=== PATIENT | male | born 1980 ===

== ENCOUNTER → 2022-05-20 15:28 | Inpatient (IN) | payer MEDICAID, OTHER ==
[2022-05-09 18:13] LABS: Appearance,Urine Clear (Clear); Bilirubin,Urine Negative (Negative); Blood,Urine Negative (Negative); Color,Urine Colorless; Glucose,Urine (UA) Negative (Negative); Ketones,Urine Negative (Negative); Leukocyte Esterase,Urine Negative (Negative); Nitrite,Urine Negative (Negative); Protein,Urine Negative (Negative); Specific Gravity,Urine 1.004 (1.001-1.035); Urobilinogen,Urine <2.0 mg/dL (<2.0)
[2022-05-09] MEDS: DIVALPROEX ER 500 MG TAB.ER.24H PO SCH (20:01)
[2022-05-09] MEDS: QUEtiapine 100 MG TAB PO SCH (20:02)
[2022-05-09] MEDS: FAMOTIDINE 20 MG TAB PO SCH (20:02)
[2022-05-09] MEDS: LORazepam 1 MG/0.5 ML VIAL IM PRN (21:25)
[2022-05-10] MEDS: LORazepam 1 MG TAB PO PRN ×3 (02:23→21:08)
[2022-05-10] MEDS: NICOTINE 14MG/24HR PATCH TRANSDERM SCH (08:44)
[2022-05-10] MEDS: chlorproMAZINE 25 MG TAB PO PRN (10:09)
--- NOTE | 2022-05-10 12:00 | P.HP ---
Psychiatric H&P - . H&P Date: 05/10/22 History & Physical: Allergies Allergy/AdvReac Type Severity Reaction Status Date / Time No Known Allergies Allergy Verified 05/09/22 16:04 Vital Signs Temp 97.4 F L 05/09/22 14:09 Pulse 94 05/09/22 14:09 Resp 18 05/09/22 14:09 BP 136/78 05/09/22 14:09 Pulse Ox 94 L 05/09/22 14:09 FiO2 Intake & Output 05/09/22 05/10/22 05/10/22 18:59 06:59 18:59 Weight 90 kg Laboratory Last Values Urine Color Colorless 05/09/22 15:38 Urine Appearance Clear (Clear) 05/09/22 15:38 Urine pH 6.0 (5.0-8.0) 05/09/22 15:38 Ur Specific [place] 1.004 (1.001-1.035) 05/09/22 15:38 Urine Protein Negative (Negative) 05/09/22 15:38 Urine Glucose (UA) Negative (Negative) 05/09/22 15:38 Urine Ketones Negative (Negative) 05/09/22 15:38 Urine Blood Negative (Negative) 05/09/22 15:38 Urine Nitrite Negative (Negative) 05/09/22 15:38 Urine Bilirubin Negative (Negative) 05/09/22 15:38 Urine Urobilinogen <2.0 mg/dL (<2.0) 05/09/22 15:38 Ur Leukocyte Esterase Negative (Negative) 05/09/22 15:38 05/10/22 12:00 IDENTIFYING DATA: Patient is a 41-year-old -Bulgarian male with significant history of schizoaffective disorder bipolar type who presented from [facility] under petition and certification for psychotic and manic behavior. HPI: Patient presented to the hospital on 05/09/2022, brought into the hospital from [facility] under petition and certification for acute psychotic and manic behavior. As per chart review from [place], the patient was brought to the hospital by EMS and police officers due to delusional behavior and psychosis. He was noted to be delusional upon arrival. He attempted to grab his mother's arms and was screaming incoherently at police officers. [place] He was threatening to call his ip technology transactions attorney and was screaming nonsensical things. The patient was subsequently admitted to our psychiatric unit. Upon evaluation her psychiatric unit, the patient is minimally cooperative. He reports that he does not want to speak with this provider or engage in any medication management until he receives coffee. He was informed that to be only serve coffee during mealtime however the patient maintains this stance. 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 Police can't stand that a black man owns all the properties." The patient is quite agitated and nonsensical in his speech. No other history could be elicited at this time. PAST PSYCHIATRIC HISTORY: Patient has reported history of schizoaffective disorder and bipolar disorder. Previous medications prior to this admission included Seroquel and Depakote. PMH: Unable to assess. As per chart review, no previous medical problems or concerns. ALLERGIES: No known drug ALLERGIES CHEMICAL DEPENDENCY HISTORY: Patient reportedly occasional alcohol and marijuana use. Tobacco use as per chart review. FAMILY PSYCHIATRIC/SUBSTANCE USE HISTORY: Unable to assess. SOCIAL HISTORY: Patient reportedly lives in [facility] his mother. He has a daughter. Unable to determine any further history at this time. MENTAL STATUS EXAM: General Appearance: Patient appears to be stated age is alert, however not directable or cooperative. Patient appears to have fair hygiene and grooming. Behavior: Patient displays psychomotor agitation. Speech: Patient's speech is pressured, spontaneous, loud in volume. Mood/Affect: Patient reports their mood is angry, affect is congruent and agitated and expansive Suicidality/Homicidality: Patient denies having any homicidal ideation intent or plan. Denies any suicidal ideations intent or plan Perceptions: Patient denies any visual hallucinations and denies any auditory hallucinations Though content/process: Patient endorses numerous grandiose delusions. Thought process with flight of ideas. Memory and concentration: AOX3, grossly intact for the purposes of this session. Concentration is grossly poor. Judgment and insight: Grossly poor. STRENGTHS/WEAKNESSES: Strength is that the patient appears to be adherent with his medications with his Depakote level being 87. Weakness is that the patient has poor insight. INTELLECT: average IMPRESSIONS: Schizoaffective disorder, bipolar type versus bipolar 1 disorder, manic episode PLAN: -Patient is admitted under involuntary status to MHU for stabilization of psychiatric symptoms and safety. A second certification was completed and along with petition will be filed for court. -Medications : Will start patient on Risperdal 2 mg by mouth twice a day for mood stabilization/psychosis Continue Seroquel 300 mg by mouth at bedtime for now. Likely taper off this medication as her transition the patient to Risperdal perseris or invega sustenna Depakote ER 1500 mg by mouth at bedtime for mood stabilization -Ativan and Thorazine PRN for agitation/aggression -Patient was informed of the risks, benefits and side effects of the medication however states that he will refuse medications. -Internal Medicine consult to perform medical evaluation and physical. -NRT - nicotine patch -SW on board for discharge planning. Encourage patient to participate in groups to work on coping skills. 05/10/22 12:00
[2022-05-10] MEDS: LORazepam 1 MG/0.5 ML VIAL IM PRN (15:47)
--- NOTE | 2022-05-10 19:03 | P.HPIM ---
History of Present Illness H&P Date: 05/10/22 History of Presenting Illness: Patient is a very pleasant 41-year-old male with a past medical history of nicotine dependence, schizoaffective disorder, bipolar disorder, and cannabis use. He is currently admitted to the inpatient mental health unit for stabilization of psychiatric symptoms resulting from manic episode. We have been consulted for medical management for outpatient hospitalization. Patient very agitated and exhibiting manic behaviors throughout examination. Physical exam and review of systems is limited secondary to patient's yelling, outbursts, and angry affect. Patient did per minute physical exam of listening to her heart and lungs and then became irate and yelling and nursing staff intervening at this time. Review of systems: Pertinent positives and negatives as discussed in HPI, a complete review of systems was performed and all other systems are negative. Physical exam: Vital signs reviewed and stable. General: Nontoxic, no distress and appears stated age. Derm: Skin warm and dry, normal coloration for ethnicity. Head: Atraumatic, normocephalic and symmetric. Eyes: EOMs intact, no lid lag, and anicteric sclera Cardiovascular: regular rate and rhythm with normal S1S2, no murmur, Lungs: Respirations even, regular, and unlabored on room air. Lungs CTA bilaterally, no rhonchi, no rales, no wheezing, and no accessory muscle usage. Abdominal: soft, nontender to palpation, no guarding, no appreciable organomegaly Ext: ROM intact. Ambulatory with a steady gait. No lower extremity swelling. Neuro: Rapid speech Psych: Alert and oriented, aggressive behaviors and angry affect Assessment and Plan of Care: Polysubstance use -Recommend smoking cessation as well as cessation of all cannabinoid use and alcohol use. Manic episode Schizoaffective disorder Bipolar disorder -Management per primary admitting psychiatric team. -Maintain safe and supportive care. Festus Garcia NP rendered care for this patient independently, reviewed the findings and plan as documented in the note above. I did not physically speak with or examine the patient on this date. Thank you for allowing us to participate in the care of this pleasant patient. Do not hesitate to contact us with questions. Someone can be reached from the [facility] hospitalist group all hours of the day at [phone] or via [employer]. Past Medical History Past Medical History: No Reported History History of Any Multi-Drug Resistant Organisms: None Reported Past Surgical History: No Surgical Hx Reported Past Anesthesia/Blood Transfusion Reactions: No Reported Reaction Past Psychological History: Bipolar Smoking Status: Current some day smoker Past Drug Use History: None Reported Medications and Allergies Allergies Allergy/AdvReac Type Severity Reaction Status Date / Time No Known Allergies Allergy Verified 05/09/22 16:04 Physical Exam Osteopathic Statement: *. No significant issues noted on an osteopathic s tructural exam other than those noted in the History and Physical/Consult.
[2022-05-10] MEDS: FAMOTIDINE 20 MG TAB PO SCH (19:53)
[2022-05-10] MEDS: DIVALPROEX ER 500 MG TAB.ER.24H PO SCH (19:53)
[2022-05-10] MEDS: risperiDONE 2 MG TAB PO SCH (19:53)
[2022-05-10] MEDS: QUEtiapine 100 MG TAB PO SCH (19:53)
[2022-05-11] MEDS: risperiDONE 2 MG TAB PO SCH (09:05)
[2022-05-11] MEDS: NICOTINE 14MG/24HR PATCH TRANSDERM SCH (09:05)
[2022-05-11] MEDS: chlorproMAZINE 25 MG TAB PO PRN (12:11)
[2022-05-11] MEDS: LORazepam 1 MG TAB PO PRN (12:11)
[2022-05-11] MEDS: DIVALPROEX ER 500 MG TAB.ER.24H PO SCH (19:53)
[2022-05-11] MEDS: QUEtiapine 100 MG TAB PO SCH (19:54)
[2022-05-11] MEDS: FAMOTIDINE 20 MG TAB PO SCH (19:54)
--- NOTE | 2022-05-11 20:18 | P.PN ---
Progress Note - Text Progress Note Date: 05/11/22 Interval History: Patient was seen wandering the hallways and was repeatedly approaching this provider with flight of ideas. He is disorganized as he describes that there is a medication change would like made. Discussed increasing Risperdal and Seroquel to help him with sleep. He was initially agreeable with this but approached this provider again with the same concern. After it was clarified that the changes previously discussed were made, patient then began speaking about his outpatient provider. This time, patient continues to be disorganized. At this time patient denies any suicidal or homical ideations, intent or plan. Patient denies any auditory, visual hallucinations and denies any paranoia or delusions. Patient denies any side effects from the medications and has been compliant with meds. Mental Status Exam: General Appearance: Patient appears to be stated age is alert, however not directable or cooperative. Patient appears to have fair hygiene and grooming. Behavior: Patient displays psychomotor agitation. Intense eye contact Speech: Patient's speech is pressured, spontaneous, loud in volume. Mood/Affect: Patient reports their mood is angry, affect is congruent and agitated and expansive Suicidality/Homicidality: Patient denies having any homicidal ideation intent or plan. Denies any suicidal ideations intent or plan Perceptions: Patient denies any visual hallucinations and denies any auditory hallucinations Though content/process: Thought process with flight of ideas. Denies SI and HI Memory and concentration: AOX3, grossly intact for the purposes of this session. Concentration is grossly poor. Judgment and insight: Grossly poor. Assessment Schizoaffective disorder, bipolar type Plan: -Patient is admitted under involuntary status to MHU for stabilization of psychiatric symptoms and safety. A second certification was completed and along with petition will be filed for court. -Medications : Risperdal increase to 2 mg daily and 3 mg by mouth twice a day for mood stabilization/psychosis. Additional 1 mg PO given once during daytime for agitation Increase Seroquel to 400 mg by mouth at bedtime for now for sleep. Likely taper off this medication as her transition the patient to Risperdal perseris or invega sustenna Depakote ER 1500 mg by mouth at bedtime for mood stabilization -Ativan and Thorazine PRN for agitation/aggression -Patient was informed of the risks, benefits and side effects of the medication however states that he will refuse medications. -Internal Medicine consult to perform medical evaluation and physical. -NRT - nicotine patch -SW on board for discharge planning. Encourage patient to participate in groups to work on coping skills.
[2022-05-12] MEDS: LORazepam 1 MG/0.5 ML VIAL IM PRN (03:07)
[2022-05-12] MEDS: NICOTINE 14MG/24HR PATCH TRANSDERM SCH (08:20)
--- NOTE | 2022-05-12 14:05 | P.PN ---
Progress Note - Text Progress Note Date: 05/12/22 Interval History: Patient was seen wandering the hallways and was repeatedly approaching this pr ovider and staff. He states that he had an outpatient provider who looks like this provider and he would like to know her name and information. However, patient is unable to recall further details of this outpatient provider. He reports tolerating his medications but requests that he be placed on Wellbutrin and that he would like to receive a "giant dose of Ambien". He states "don't hold back" and requests for large doses for sleeping. However, he reports that he has been sleeping well with the current medications. Patient is more redirectable today but continues to be disorganized. At this time patient denies any suicidal or homicidal ideations, intent or plan. Patient denies any auditory, visual hallucinations and denies any paranoia or delusions. Patient denies any side effects from the medications and has been compliant with meds. Mental Status Exam: General Appearance: Patient appears to be stated age is alert, more cooperative. Patient appears to have poor hygiene and grooming. Behavior: Patient displays psychomotor agitation and intrusiveness Speech: Patient's speech is pressured, spontaneous, loud in volume. Mood/Affect: Patient reports their mood is "fine", affect is constricted Suicidality/Homicidality: Patient denies having any homicidal ideation intent or plan. Denies any suicidal ideations intent or plan Perceptions: Patient denies any visual hallucinations and denies any auditory hallucinations Though content/process: Thought process with flight of ideas. Denies SI and HI Memory and concentration: AOX3, grossly intact for the purposes of this session. Concentration is grossly poor. Judgment and insight: Grossly poor. Assessment Schizoaffective disorder, bipolar type Plan: -Patient is admitted under involuntary status to MHU for stabilization of psychiatric symptoms and safety. A second certification was completed and along with petition will be filed for court. -Medications : Risperdal increase to 3 mg by mouth twice a day for mood st abilization/psychosis. Continue Seroquel 400 mg by mouth at bedtime for now for sleep. Likely taper off this medication as her transition the patient to Risperdal perseris or invega sustenna Depakote ER 1500 mg by mouth at bedtime for mood stabilization -Ativan and Thorazine PRN for agitation/aggression -Patient was informed of the risks, benefits and side effects of the medication however states that he will refuse medications. -Internal Medicine consult to perform medical evaluation and physical. -NRT - nicotine patch -SW on board for discharge planning. Encourage patient to participate in groups to work on coping skills.
[2022-05-12] MEDS: chlorproMAZINE 25 MG TAB PO PRN ×2 (15:03→22:06)
[2022-05-12] MEDS: LORazepam 1 MG TAB PO PRN ×2 (15:03→22:06)
[2022-05-12] MEDS: DIVALPROEX ER 500 MG TAB.ER.24H PO SCH (20:39)
[2022-05-12] MEDS: FAMOTIDINE 20 MG TAB PO SCH (20:39)
[2022-05-12] MEDS: risperiDONE 1 MG TAB PO SCH (20:40)
[2022-05-13] MEDS: risperiDONE 1 MG TAB PO SCH ×2 (09:14→20:05)
[2022-05-13] MEDS: NICOTINE 14MG/24HR PATCH TRANSDERM SCH (09:15)
--- NOTE | 2022-05-13 11:10 | P.PN ---
Progress Note - Text Progress Note Date: 05/13/22 Interval History: Patient was seen resting in bed and was directable and agreeable to speak with technical publications writer in his room. Initially, the patient was expressing that he was feeling stated however during the conversation, the patient became elevated and labile. He also began to exhibit pressured speech and went on a nonsensical rant regarding his mother and her having dementia. The patient also speak nonsensically at times with a bizarre pattern. The patient has been noted by staff to occasionally be intrusive with peers. This resulted in a verbal altercation with a peer that required staff intervention. The patient has been in adherent with his medication and is not endorsing any significant side effects at this time. He however continues to demand Ambien for sleep. The patient has been petitioned and certified and is scheduled for court on 05/21/2022. He is currently not endorsing any suicidal or homicidal ideation, intention, and/or plan. He is not reporting any auditory or visual hallucinations. The patient did receive Thorazine yesterday in order to calm down. Mental Status Exam: General Appearance: Patient appears to be stated age however is not directable and intermittently cooperative Behavior: Patient was initially calmly lying down in bed however got up quickly and displayed significant psychomotor agitation. Speech: Patient's speech is nonsensical, nonlinear, pressured. Mood/Affect: Mood is "not good." Affect is labile and expansive. Suicidality/Homicidality: Patient denies having any suicidal or homicidal ideation intent or plan. Perceptions: Patient denies any visual hallucinations and denies any auditory hallucinations Though content/process: Disorganized. Flight of ideas. Memory and concentration: Poor at this time. Judgment and insight: Poor Vital Signs Temp 98.7 F 05/12/22 03:11 Pulse 128 H 05/12/22 03:11 Resp 16 05/12/22 03:11 BP 108/62 05/12/22 03:11 Pulse Ox 96 05/12/22 03:11 FiO2 Assessment Schizoaffective disorder, bipolar type Plan: -Patient continues to meet criteria for inpatient psychiatric admission for symptom stabilization and safety. Patient has been petitioned and certified. He is scheduled for a full court hearing on 05/21/2022. -Medications: Risperdal 4 mg by mouth twice a day for mood stabilization/psychosis. Continue Seroquel 400 mg by mouth at bedtime. We will likely taper off this medication once he is transitioned to a long-acting injectable medication Depakote ER 1500 mg by mouth at bedtime. CMP and Depakote level are ordered. -When necessary Ativan and Thorazine for agitation/aggression. -NRT - nicotine patch -SW on board for discharge planning. Encouraged the patient to participate in milieu.
[2022-05-13 15:07] LABS: Basophils % (A) 1 %; Eosinophils # (A) 0.3 k/uL (0-0.7); Eosinophils % (A) 8 %; HCT 38.8 % (39.0-53.0); HGB 12.9 gm/dL (13.0-17.5); Hypochromasia Slight; Lymphocytes # (A) 1.2 k/uL (1.0-4.8); Lymphocytes % (A) 31 %; MCHC 33.2 g/dL (31.0-37.0); MCV 90.3 fL (80.0-100.0); Mean Platelet Volume 7.5; Monocytes # (A) 0.4 k/uL (0-1.0); Monocytes % (A) 11 %; Neutrophils # (A) 1.7 k/uL (1.3-7.7); Neutrophils % (A) 46 %; Platelet Count 196 k/uL (150-450); RBC 4.29 m/uL (4.30-5.90); RDW 13.8 % (11.5-15.5); WBC 3.8 k/uL (3.8-10.6)
[2022-05-13 15:24] LABS: ALT 17 U/L (4-49); AST 24 U/L (17-59); African American GFR (CKD) >90 (>60 ml/min/1.73 sqM); Albumin 3.7 g/dL (3.5-5.0); Alkaline Phosphatase 71 U/L (38-126); Anion Gap 7 mmol/L; Blood Urea Nitrogen 10 mg/dL (9-20); Calcium 9.2 mg/dL (8.4-10.2); Carbon Dioxide 27 mmol/L (22-30); Chloride 103 mmol/L (98-107); Glucose 105 mg/dL (74-99); Non-African American GFR(CKD) >90 (>60 ml/min/1.73 sqM); Potassium 4.3 mmol/L (3.5-5.1); Sodium 137 mmol/L (137-145); Total Bilirubin <0.1 mg/dL (0.2-1.3); Total Protein 6.2 g/dL (6.3-8.2)
[2022-05-13] MEDS: DIVALPROEX ER 500 MG TAB.ER.24H PO SCH (20:03)
[2022-05-13] MEDS: FAMOTIDINE 20 MG TAB PO SCH (20:04)
[2022-05-13] MEDS: QUEtiapine 200 MG TAB PO SCH (20:06)
[2022-05-13] MEDS: LORazepam 1 MG TAB PO PRN (22:29)
[2022-05-13] MEDS: chlorproMAZINE 25 MG TAB PO PRN (22:29)
[2022-05-14] MEDS: risperiDONE 1 MG TAB PO SCH ×2 (09:43→20:07)
[2022-05-14] MEDS: NICOTINE 14MG/24HR PATCH TRANSDERM SCH (09:43)
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
[2022-05-14] MEDS: LORazepam 1 MG TAB PO PRN (15:33)
[2022-05-14] MEDS: chlorproMAZINE 25 MG TAB PO PRN (15:34)
[2022-05-14] MEDS: FAMOTIDINE 20 MG TAB PO SCH (20:07)
[2022-05-14] MEDS: QUEtiapine 200 MG TAB PO SCH (20:07)
[2022-05-14] MEDS: LITHIUM CARBONATE ER 450 MG TABLET.ER PO SCH (20:07)
[2022-05-14] MEDS: DIVALPROEX ER 500 MG TAB.ER.24H PO SCH (20:07)
[2022-05-15] MEDS: LORazepam 1 MG/0.5 ML VIAL IM PRN (00:40)
[2022-05-15] MEDS: LITHIUM CARBONATE ER 450 MG TABLET.ER PO SCH ×2 (10:53→21:39)
[2022-05-15] MEDS: NICOTINE 14MG/24HR PATCH TRANSDERM SCH (10:53)
[2022-05-15] MEDS: risperiDONE 1 MG TAB PO SCH ×2 (10:53→21:40)
--- NOTE | 2022-05-15 12:52 | P.PN ---
Progress Note - Text Progress Note Date: 05/15/22 Interval History: Patient was seen resting in bed and was directable and agreeable to speak with policy writer sales in his room. Patient is reporting that he was able to sleep well. He is currently denying any suicidal or homicidal ideation, intention, and/or plan. He is not reporting any auditory or visual hallucinations. The patient however continues to be overtly paranoid. Every time the conversation discusses his length of stay as well as his mental health court status, the patient becomes very paranoid and states to this provider that the treatment team is "hiding" his sports attorney from him. The patient is then able to calm down. The patient is currently denying any racing thoughts, grandiosity, or increased goal-directed activity. He deferred mental health court today. Mental Status Exam: General Appearance: Patient appears to be stated age and is directable and cooperative Behavior: Patient was initially calmly seated in the office however and display psychomotor agitation Speech: Patient's speech is with normal rate and volume however becomes pressured and loud when he talks about court. Mood/Affect: Mood is initially calm and then irritable Affect is labile and expansive. Suicidality/Homicidality: Patient denies having any suicidal or homicidal idea tion intent or plan. Perceptions: Patient denies any visual hallucinations and denies any auditory hallucinations Though content/process: Disorganized. Flight of ideas. Memory and concentration: Poor at this time. Judgment and insight: Poor Vital Signs Temp 97.7 F 05/14/22 06:19 Pulse 120 H 05/15/22 10:54 Resp 16 05/15/22 10:54 BP 126/66 05/15/22 10:54 Pulse Ox 99 05/14/22 15:32 FiO2 Assessment Schizoaffective disorder, bipolar type Plan: -Patient continues to meet criteria for inpatient psychiatric admission for symp cornelia stabilization and safety. Patient has been petitioned and certified. He is scheduled for a full court hearing on 05/21/2022. Patient deferred mental health court. -Medications: Risperdal 3 mg by mouth twice a day for mood stabilization/psychosis. Likely transition the patient to Invega Sustenna or Risperdal Consta tomorrow. Continue Seroquel 200 mg by mouth at bedtime due to tachycardia. Continue 450 mg by mouth twice a day for mood stabilization Depakote ER 1500 mg by mouth at bedtime. -EKG ordered due to tachycardia -When necessary Ativan and Thorazine for agitation/aggression. -NRT - nicotine patch -SW on board for discharge planning. Encouraged the patient to participate in milieu.
[2022-05-15] MEDS: QUEtiapine 200 MG TAB PO SCH (21:39)
[2022-05-15] MEDS: DIVALPROEX ER 500 MG TAB.ER.24H PO SCH (21:40)
[2022-05-15] MEDS: FAMOTIDINE 20 MG TAB PO SCH (21:40)
[2022-05-16] MEDS: LITHIUM CARBONATE ER 450 MG TABLET.ER PO SCH ×2 (08:08→20:32)
[2022-05-16] MEDS: risperiDONE 1 MG TAB PO SCH (08:08)
[2022-05-16] MEDS: NICOTINE 14MG/24HR PATCH TRANSDERM SCH (08:08)
--- NOTE | 2022-05-16 10:54 | P.PN ---
Progress Note - Text Progress Note Date: 05/16/22 Interval History: Patient was seen resting in bed and was directable and agreeable to speak with chief underwriter in his room. Patient is currently denying any suicidal or homicidal ideation, intention, and/or plan. He is not reporting any auditory or visual hallucinations. He denies any paranoia or other delusions. The patient is in agreement to receiving Invega Sustenna today. He is not reporting any issues regarding his sleep or his appetite. He has been in adherent with his medication is not reporting any significant side effects. He denies any chest pain, shortness of breath, or headache. Mental Status Exam: General Appearance: Patient appears to be stated age and is directable and cooperative Behavior: Patient was calmly lying down in bed without any agitated behavior. Speech: Patient's speech is with normal rate and volume. Mood/Affect: Mood is "doing okay." Affect is calm and euthymic. Suicidality/Homicidality: Patient denies having any suicidal or homicidal ideation intent or plan. Perceptions: Patient denies any visual hallucinations and denies any auditory hallucinations Though content/process: Linear and logical in short conversation. Memory and concentration: Fair at this time. Judgment and insight: Mildly improving Vital Signs Temp 97.7 F 05/14/22 06:19 Pulse 120 H 05/15/22 10:54 Resp 16 05/15/22 10:54 BP 126/66 05/15/22 10:54 Pulse Ox 99 05/14/22 15:32 FiO2 Assessment Schizoaffective disorder, bipolar type Plan: -Patient continues to meet criteria for inpatient psychiatric admission for symptom stabilization and safety. Patient has been petitioned and certified. He is scheduled for a full court hearing on 05/21/2022. Patient deferred mental health court. -Medications: Invega Sustenna 234 mg IM today. We will discontinue oral Risperdal. Continue Seroquel 200 mg by mouth at bedtime. We'll consider tapering of this medication should the patient continued to display improvement in mood stabilization. [place] 450 mg by mouth twice a day for mood stabilization Depakote ER 1500 mg by mouth at bedtime. -When necessary Ativan and Thorazine for agitation/aggression. -NRT - nicotine patch -SW on board for discharge planning. Encouraged the patient to participate in milieu.
[2022-05-16] MEDS: DIVALPROEX ER 500 MG TAB.ER.24H PO SCH (20:04)
[2022-05-16] MEDS: FAMOTIDINE 20 MG TAB PO SCH (20:05)
[2022-05-16] MEDS: QUEtiapine 200 MG TAB PO SCH (20:06)
[2022-05-16] MEDS: LORazepam 1 MG TAB PO PRN (21:48)
[2022-05-17] MEDS: NICOTINE 14MG/24HR PATCH TRANSDERM SCH (09:33)
[2022-05-17] MEDS: LITHIUM CARBONATE ER 450 MG TABLET.ER PO SCH ×2 (09:34→20:50)
--- NOTE | 2022-05-17 09:46 | P.PN ---
Progress Note - Text Progress Note Date: 05/17/22 Interval History: Patient was seen resting in bed and was directable and agreeable to speak with internal communications writer in his room. Currently, the patient is not reporting any suicidal or homicidal ideation, intention, and/or plan. He is not reporting any auditory or visual hallucinations. He is denying any paranoia or other delusions. The patient has been adherent with his medication and is not endorsing any significant side effects at this time. He reports no issues regarding his sleep or his appetite. The patient received Invega Sustenna yesterday and is tolerating the medication well. He is calm and cooperative and inquiring about discharge. He was informed of discharge would be on Friday. He is in agreement with this plan. Mental Status Exam: General Appearance: Patient appears to be stated age and is directable and cooperative Behavior: Patient was calmly lying down in bed without any agitated behavior. Speech: Patient's speech is with normal rate and volume. Mood/Affect: Mood is "doing okay." Affect is calm and euthymic. Suicidality/Homicidality: Patient denies having any suicidal or homicidal ideation intent or plan. Perceptions: Patient denies any visual hallucinations and denies any auditory hallucinations Though content/process: Linear and logical in short conversation. Memory and concentration: Fair at this time. Judgment and insight: Mildly improving Vital Signs Temp 98.0 F 05/17/22 06:16 Pulse 68 05/17/22 06:16 Resp 18 05/17/22 06:16 BP 106/57 05/17/22 06:16 Pulse Ox 96 05/17/22 06:16 FiO2 Assessment Schizoaffective disorder, bipolar type Plan: -Patient continues to meet criteria for inpatient psychiatric admission for symptom stabilization and safety. Patient has been petitioned and certified. He is scheduled for a full court hearing on 05/21/2022. Patient deferred mental health court. -Medications: Invega Sustenna 234 mg IM was administered on 05/16/2022. Next dose of invega sustenna 156 mg IM to be administered in 4-7 days. Taper Seroquel to 100 mg at bedtime. [place] 450 mg by mouth twice a day for mood stabilization. [place] level ordered for Friday. Depakote ER 1500 mg by mouth at bedtime for mood stabilization. -EKG reviewed- Sinus tachycardia with QTc of 438 ms. -When necessary Ativan and Thorazine for agitation/aggression. -NRT - nicotine patch -SW on board for discharge planning. Encouraged the patient to participate in milieu.
[2022-05-17] MEDS: FAMOTIDINE 20 MG TAB PO SCH (20:50)
[2022-05-17] MEDS: QUEtiapine 100 MG TAB PO SCH (20:50)
[2022-05-17] MEDS: DIVALPROEX ER 500 MG TAB.ER.24H PO SCH (20:50)
[2022-05-17] MEDS: LORazepam 1 MG TAB PO PRN (20:52)
[2022-05-18 06:45] VITALS: RESP 16
[2022-05-18] MEDS: LITHIUM CARBONATE ER 450 MG TABLET.ER PO SCH ×2 (09:02→20:51)
[2022-05-18] MEDS: NICOTINE 14MG/24HR PATCH TRANSDERM SCH (09:02)
--- NOTE | 2022-05-18 15:13 | P.PN ---
Progress Note - Text Progress Note Date: 05/18/22 Interval History: Patient was seen resting in bed and was directable and agreeable to speak with scientific technical writer. Currently, the patient is not reporting any suicidal or homicidal ideation, intention, and/or plan. He is not reporting any auditory or visual hallucinations. He is denying any paranoia or other delusions. The patient has been adherent with his medication and is not endorsing any significant side effects at this time. He reports no issues regarding his sleep or his appetite. He asks why he is seeing this provider answered of his weekday psychiatrist and understood when it was explained to him. He denied further concerns or questions. Mental Status Exam: General Appearance: Patient appears to be stated age and is directable and cooperative Behavior: Patient was calmly lying down in bed without any agitated behavior. Speech: Patient's speech is with normal rate and volume. Mood/Affect: Mood is "okay." Affect is calm and euthymic. Suicidality/Homicidality: Patient denies having any suicidal or homicidal ideation intent or plan. Perceptions: Patient denies any visual hallucinations and denies any auditory hallucinations Though content/process: Linear and logical in short conversation. Memory and concentration: Fair at this time. Judgment and insight: Mildly improving Assessment Schizoaffective disorder, bipolar type Plan: -Patient continues to meet criteria for inpatient psychiatric admission for symptom stabilization and safety. Patient has been petitioned and certified. He is scheduled for a full court hearing on 05/21/2022. Patient deferred mental health court. -Medications: Invega Sustenna 234 mg IM was administered on 05/16/2022. Next dose of invega sustenna 156 mg IM to be administered in 4-7 days. Continue Seroquel 100 mg at bedtime for sleep [place] 450 mg by mouth twice a day for mood stabilization. [place] level or dered for Friday. Depakote ER 1500 mg by mouth at bedtime for mood stabilization. -EKG reviewed- Sinus tachycardia with QTc of 438 ms. HR improved yesterday and today and patient denying cardiac symps -When necessary Ativan and Thorazine for agitation/aggression. -NRT - nicotine patch -SW on board for discharge planning. Encouraged the patient to participate in milieu.
[2022-05-18] MEDS: DIVALPROEX ER 500 MG TAB.ER.24H PO SCH (20:50)
[2022-05-18] MEDS: QUEtiapine 100 MG TAB PO SCH (20:51)
[2022-05-18] MEDS: LORazepam 1 MG TAB PO PRN (20:51)
[2022-05-18] MEDS: FAMOTIDINE 20 MG TAB PO SCH (21:14)
[2022-05-19] MEDS: LITHIUM CARBONATE ER 450 MG TABLET.ER PO SCH ×2 (12:00→19:45)
[2022-05-19] MEDS: NICOTINE 14MG/24HR PATCH TRANSDERM SCH (12:00)
[2022-05-19 15:05] VITALS: BP 115/59; PULSE 82; TEMP 98.3
--- NOTE | 2022-05-19 19:06 | P.PN ---
Progress Note - Text Progress Note Date: 05/19/22 Interval History: Patient was seen resting in bed and was directable and agreeable to speak with content writer. Currently, the patient is not reporting any suicidal or homicidal ideation, intention, and/or plan. He is not reporting any auditory or visual hallucinations. He is denying any paranoia or other delusions. The patient has been adherent with his medication and is not endorsing any significant side effects at this time. He is compliant with lithium draw this morning. He reports no issues regarding his sleep or his appetite. He reports that he is anticipating to be speaking with his provider again tomorrow regarding discharge. He denied further concerns or questions. Mental Status Exam: General Appearance: Patient appears to be stated age and is directable and cooperative, somnolent this morning Behavior: Patient was calmly lying down in bed without any agitated behavior. Speech: Patient's speech is with normal rate and volume. Mood/Affect: Mood is "okay." Affect is calm and euthymic. Suicidality/Homicidality: Patient denies having any suicidal or homicidal ideation intent or plan. Perceptions: Patient denies any visual hallucinations and denies any auditory hallucinations Though content/process: Linear and logical in short conversation. Memory and concentration: Fair at this time. Judgment and insight: Mildly improving Assessment Schizoaffective disorder, bipolar type Plan: -Patient continues to meet criteria for inpatient psychiatric admission for symptom stabilization and safety. Patient has been petitioned and certified. He is scheduled for a full court hearing on 05/21/2022. Patient deferred mental health court. -Medications: Invega Sustenna 234 mg IM was administered on 05/16/2022. Next dose of invega sustenna 156 mg IM to be administered in 4-7 days. Continue Seroquel 100 mg at bedtime for sleep [place] 450 mg by mouth twice a day for mood stabilization. [place] level on 05/19: 0.8 Depakote ER 1500 mg by mouth at bedtime for mood stabilization. Valproic acid level 67.8 on 05/13 -EKG reviewed- Sinus tachycardia with QTc of 438 ms. HR improved yesterday and today and patient denying cardiac symps -When necessary Ativan and Thorazine for agitation/aggression. -NRT - nicotine patch -SW on board for discharge planning. Encouraged the patient to participate in milieu.
[2022-05-19] MEDS: QUEtiapine 100 MG TAB PO SCH (19:45)
[2022-05-19] MEDS: FAMOTIDINE 20 MG TAB PO SCH (19:45)
[2022-05-19] MEDS: DIVALPROEX ER 500 MG TAB.ER.24H PO SCH (19:45)
[2022-05-20] MEDS: NICOTINE 14MG/24HR PATCH TRANSDERM SCH (08:10)
[2022-05-20] MEDS: LITHIUM CARBONATE ER 450 MG TABLET.ER PO SCH (08:10)
[2022-05-20 09:41] VITALS: BMI 27.6
--- NOTE | 2022-05-20 13:12 | P.DS ---
Providers Date of admission: 05/09/22 15:25 Expected date of discharge: 05/20/22 Attending physician: Cole Bedolla MD Consults: 05/09/22 14:12 Consult Physician Routine Consulting Provider: Tony Bailon Consult Reason/Comments: Medical H&P Do you want consulting provider notified?: Yes Primary care physician: Stated None - Discharge Diagnosis(es) (1) Severe manic bipolar 1 disorder with psychotic behavior Current Visit: Yes Status: Acute Priority: High (2) Tobacco use disorder Current Visit: Yes Status: Chronic Priority: Medium Hospital Course: Admission HPI: Patient is a 41-year-old -Spanish male with significant history of schizoaffective disorder bipolar type who presented from [facility] under petition and certification for psychotic and manic behavior. Patient presented to the hospital on 05/09/2022, brought into the hospital from [facility] under petition and certification for acute psychotic and manic b ehavior. As per chart review from [facility], the patient was brought to the hospital by EMS and police officers due to delusional behavior and psychosis. He was noted to be delusional upon arrival. He attempted to grab his mother's arms and was screaming incoherently at police officers. [place] He was threatening to call his disability attorney and was screaming nonsensical things. The patient was subsequently admitted to our psychiatric unit. Upon evaluation her psychiatric unit, the patient is minimally cooperative. He reports that he does not want to speak with this provider or engage in any medication management until he receives coffee. He was informed that to be only serve coffee during mealtime however the patient maintains this stance. 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 Police can't stand that a black man owns all the properties." The patient is quite agitated and nonsensical in his speech. No other history could be elicited at this time. Patient has reported history of schizoaffective disorder and bipolar disorder. Previous medications prior to this admission included Seroquel and Depakote. Hospital course: Upon admission to the unit patient was initially presenting as overtly manic and intrusive. The patient initially refused any medications or treatment. He was initially very difficult to direct. He was started on a regimen of Risperdal, Seroquel, and Depakote for management of acute jordan. The patient was eventually adherent with his medications. He was agreeable to adding lithium to his regimen. On this regimen, the patient displayed significant improvement in regards to started symptoms of jordan and psychosis. He was eventually transition to Invega Sustenna and his oral Risperdal was discontinued. He received his second loading dose of Invega Sustenna on 05/20/2022. He tolerated the medications well and reported no significant side effects. Prior to discharge, the patient did defer mental health court. On the day of discharge, the patient is not reporting any suicidal or homicidal ideation, intention, and/or plan. He is not reporting any auditory or visual hallucinations. He is denying any paranoia or other delusions. He has been adherent with his medication and is not endorsing any significant side effects. The patient reported no issues regarding sleep or his appetite. He reported no medical issues or concerns and denied any chest pain, shortness of breath, palpitations, or dystonic reactions. An EKG was performed and revealed sinus tachycardia with a normal QTc interval. The patient was counseled at length on the reports of medication adherence appropriate outpatient follow-up. Furthermore, the patient was counseled on abstaining from all substances including alcohol and marijuana. Prior to discharge, family meeting was arranged by geriatric social work professor to answer any questions and ensure safety. Mental status exam: General Appearance: Patient appears to be stated age is alert, pleasant, and cooperative. Patient is in no acute distress and has fair hygiene and grooming Behavior: Patient is calmly seated without any agitated behavior. Speech: Patient's speech is fluent and nonpressured. Mood/Affect: Patient reports their mood is "good", affect is congruent and euthymic. Suicidality/Homicidality: Patient denies having any suicidal or homicidal ideation intent or plan. Perceptions: Patient denies any auditory or visual hallucinations. Though content/process: There is no evidence of any delusional thought content and thought process is linear and goal-directed. Is future oriented Memory and concentration: AOX3, grossly intact for the purposes of this session. Can spell "WORLD" backwards correctly. Judgment and insight: Improved with guarded prognosis Impression: Bipolar 1 disorder, manic episode Tobacco use disorder Plan: -Continue with discharge today as patient has improved and stabilized psychiatrically and is not currently an imminent threat to himself and/or others. Patient will remain at chronically elevated risk due to the severity of his mental illness. -Continue medications: Seroquel 100 mg by mouth at bedtime for 7 days. Patient is currently on dual antipsychotic treatment with Invega and Seroquel. We will begin to taper off Seroquel. Invega Sustenna 156 mg IM was administered on 05/20/2022. Next dose due in one month. Depakote 1500 mg by mouth at bedtime for mood stabilization [place] 450 mg by mouth twice a day for mood stabilization Habitrol patches for nicotine cessation -Patient was counseled on the need for medication compliance and appropriate follow-up at mental health and also primary care for medical issues. Patient verbalized understanding and agreed. -Social work to arrange for and conduct family meeting to ensure safety upon di scharge and answer any questions/concerns. Social work also to arrange for patients follow up appointments with [facility] for psychiatric care along with follow up with primary care provider. -Patient counseled on abstaining from recreational drugs and marijuana and alcohol. Was informed/educated on the adverse effects on their physical and mental health. Patient verbally agreed and understood. -Patient was instructed to return to the hospital or seek immediate medical care if their psychiatric or medical symptoms do worsen or reoccur. -Psychoeducation and supportive therapy provided to patient. Risks and benefits of pharmacological treatment versus the risks and benefits of nontreatment weight and discussed. Informed consent discussion held. Common side effects of psychotropics discussed such as, but not limited to headache, GI disturbance, sexual dysfunction, movement disorders, sedation, and orthostatic hypotension. Life threatening and blackbox warnings of prescribed medications also discussed. Potential risks of operating a vehicle or heavy machinery discussed with patient at length. Advised on importance of compliance and a reliable and responsible manner. Patient advised to review FDA consumer labeling of all medications prior to taking. Patient verbalized understanding of potential risks, and agrees with current treatment plan. Patient advised to medically contact physician/emergency personnel if any acute changes in condition occur. Vital Signs Temp 98.3 F 05/19/22 11:55 Pulse 82 05/19/22 11:55 Resp 16 05/19/22 11:55 BP 115/59 05/19/22 11:55 Pulse Ox 98 05/19/22 11:55 FiO2 Intake & Output 05/19/22 05/20/22 05/20/22 18:59 06:59 18:59 Weight 79.7 kg 79.7 kg Laboratory Results WBC 3.8 k/uL (3.8-10.6) 05/13/22 14:36 RBC 4.29 m/uL (4.30-5.90) L 05/13/22 14:36 Hgb 12.9 gm/dL (13.0-17.5) L 05/13/22 14:36 Hct 38.8 % (39.0-53.0) L 05/13/22 14:36 MCV 90.3 fL (80.0-100.0) 05/13/22 14:36 MCH 30.0 pg (25.0-35.0) 05/13/22 14:36 MCHC 33.2 g/dL (31.0-37.0) 05/13/22 14:36 RDW 13.8 % (11.5-15.5) 05/13/22 14:36 Plt Count 196 k/uL (150-450) 05/13/22 14:36 MPV 7.5 05/13/22 14:36 Neutrophils % 46 % 05/13/22 14:36 Lymphocytes % 31 % 05/13/22 14:36 Monocytes % 11 % 05/13/22 14:36 Eosinophils % 8 % 05/13/22 14:36 Basophils % 1 % 05/13/22 14:36 Neutrophils # 1.7 k/uL (1.3-7.7) 05/13/22 14:36 Lymphocytes # 1.2 k/uL (1.0-4.8) 05/13/22 14:36 Monocytes # 0.4 k/uL (0-1.0) 05/13/22 14:36 Eosinophils # 0.3 k/uL (0-0.7) 05/13/22 14:36 Basophils # 0.0 k/uL (0-0.2) 05/13/22 14:36 Hypochromasia Slight 05/13/22 14:36 Sodium 137 mmol/L (137-145) 05/13/22 14:36 Potassium 4.3 mmol/L (3.5-5.1) 05/13/22 14:36 Chloride 103 mmol/L (98-107) 05/13/22 14:36 Carbon Dioxide 27 mmol/L (22-30) 05/13/22 14:36 Anion Gap 7 mmol/L 05/13/22 14:36 BUN 10 mg/dL (9-20) 05/13/22 14:36 Creatinine 0.73 mg/dL (0.66-1.25) 05/13/22 14:36 Est GFR (CKD-EPI)AfAm >90 (>60 ml/min/1.73 sqM) 05/13/22 14:36 Est GFR (CKD-EPI)NonAf >90 (>60 ml/min/1.73 sqM) 05/13/22 14:36 Glucose 105 mg/dL (74-99) H 05/13/22 14:36 Calcium 9.2 mg/dL (8.4-10.2) 05/13/22 14:36 Total Bilirubin <0.1 mg/dL (0.2-1.3) L 05/13/22 14:36 AST 24 U/L (17-59) 05/13/22 14:36 ALT 17 U/L (4-49) 05/13/22 14:36 Alkaline Phosphatase 71 U/L (38-126) 05/13/22 14:36 Total Protein 6.2 g/dL (6.3-8.2) L 05/13/22 14:36 Albumin 3.7 g/dL (3.5-5.0) 05/13/22 14:36 Urine Color Colorless 05/09/22 15:38 Urine Appearance Clear (Clear) 05/09/22 15:38 Urine pH 6.0 (5.0-8.0) 05/09/22 15:38 Ur Specific [place] 1.004 (1.001-1.035) 05/09/22 15:38 Urine Protein Negative (Negative) 05/09/22 15:38 Urine Glucose (UA) Negative (Negative) 05/09/22 15:38 Urine Ketones Negative (Negative) 05/09/22 15:38 Urine Blood Negative (Negative) 05/09/22 15:38 Urine Nitrite Negative (Negative) 05/09/22 15:38 Urine Bilirubin Negative (Negative) 05/09/22 15:38 Urine Urobilinogen <2.0 mg/dL (<2.0) 05/09/22 15:38 Ur Leukocyte Esterase Negative (Negative) 05/09/22 15:38 Valproic Acid 67.8 ug/mL 05/13/22 14:36 [place] 0.8 mmol/L 05/19/22 10:46 Allergies Allergy/AdvReac Type Severity Reaction Status Date / Time No Known Allergies Allergy Verified 05/09/22 16:04 Patient Condition at Discharge: Stable Plan - Discharge Summary New Discharge Prescriptions: New RX: Nicotine 14Mg/24Hr Patch [Habitrol] 1 patch TRANSDERM DAILY 30 Days patch RX: Paliperidone IM [Invega Sustenna] 156 mg IM ONCE #1 ml RX: Divalproex ER [Depakote ER] 1,500 mg PO HS 30 Days tab RX: [place] Carbonate ER [Lithobid] 450 mg PO BID 30 Days tab QUEtiapine [SEROquel] 100 mg PO HS 7 Days #7 tablet Discharge Medication List QUEtiapine [SEROquel] 100 mg PO HS 7 Days #7 tablet 05/20/22 [Rx] RX: Divalproex ER [Depakote ER] 1,500 mg PO HS 30 Days tab 05/20/22 [Rx] RX: [place] Carbonate ER [Lithobid] 450 mg PO BID 30 Days tab 05/20/22 [Rx] RX: Nicotine 14Mg/24Hr Patch [Habitrol] 1 patch TRANSDERM DAILY 30 Days patch 05/20/22 [Rx] RX: Paliperidone IM [Invega Sustenna] 156 mg IM ONCE #1 ml 05/20/22 [Rx] Follow up Appointment(s)/Referral(s): [facility] [Other] - 1 Week Activity/Diet/Wound Care/Special Instructions: Avoid the use of street drugs and alcohol. Take all prescriptions as prescribed. When you are in need of refills on your medications, please contact your medical provider and/or outpatient psychiatrist to have this done. Please go to scheduled outpatient appointment for aftercare treatment. If symptoms return or become worse, call the crisis line at and/or go to the nearest emergency room for evaluation. Discharge Disposition: HOME SELF-CARE
[~2022-05-20 15:28] MED LIST: ACETAMINOPHEN TAB 325 MG TAB PO PRN; LORazepam 2 MG/ML INJ IM PRN; MAG HYDROX/AL HYDROX/SIMETH 30 ML CUP PO PRN; MAG HYDROX/AL HYDROX/SIMETH 355 ML BOTTLE PO PRN; MAGNESIUM HYDROXIDE 2,400 MG/10 ML CUP PO PRN; PALIPERIDONE IM 156 MG/ML SYG IM ONE; PALIPERIDONE IM 234 MG/1.5 ML SYG IM STA; PNEUMOCOCCAL VACC-PREVNAR-20 0.5 ML SYR IM ONE; QUEtiapine 100 MG TAB PO ONE; QUEtiapine 400 MG TAB PO SCH; chlorproMAZINE 25 MG TAB PO PRN; chlorproMAZINE 25 MG/ML 2 ML AMP IM PRN; risperiDONE 1 MG TAB PO SCH; risperiDONE 1 MG TAB PO STA; risperiDONE 2 MG TAB PO SCH
== END | disposition home or self-care (01) | DRG 885 ==
LOC: UNDOADMIN 05-09 15:25 → EDSEX 05-09 15:25 → 3MHU 05-09 15:25 → UNDOADMIN 05-09 14:07 → 3MHU 05-09 15:25
PROVIDERS: ADMIT Psychiatry & Neurology Psychiatry; ATTEND Psychiatry & Neurology Psychiatry
DX: F31.2 Bipolar disorder, current episode manic severe with psychotic features (principal); Z71.6 Tobacco abuse counseling; F17.210 Nicotine dependence, cigarettes, uncomplicated; Z71.51 Drug abuse counseling and surveillance of drug abuser; Z71.41 Alcohol abuse counseling and surveillance of alcoholic; Z79.899 Other long term (current) drug therapy
CPT/HCPCS: 80053; 80164; 80178; 81003; 85025; 90677; 93005

== ENCOUNTER 2022-12-27 16:03 | Inpatient (IN) | payer MEDICAID ==
[2022-12-27] MEDS ORDERED: MAG HYDROX/AL HYDROX/SIMETH 30 ML CUP PO PRN (16:09)
[2022-12-27] MEDS ORDERED: LORazepam 2 MG/ML INJ IM PRN (16:09)
[2022-12-27] MEDS ORDERED: ACETAMINOPHEN TAB 325 MG TAB PO PRN (16:09)
[2022-12-27] MEDS ORDERED: IBUPROFEN 600 MG TAB PO PRN (16:09)
[2022-12-27] MEDS ORDERED: MAGNESIUM HYDROXIDE 2,400 MG/30 ML CUP PO PRN (16:09)
[2022-12-27] MEDS ORDERED: HALOPERIDOL LACTATE 5 MG/ML 1 ML VIAL IM PRN (16:09)
[2022-12-27] MEDS: clonazePAM 1 MG TAB PO SCH (19:59)
[2022-12-27] MEDS: QUEtiapine 100 MG TAB PO SCH (19:59)
[2022-12-27] MEDS: FAMOTIDINE 20 MG TAB PO SCH (19:59)
[2022-12-27] MEDS: LITHIUM CARBONATE ER 450 MG TABLET.ER PO SCH (19:59)
[2022-12-27] MEDS: LORazepam 1 MG TAB PO PRN (19:59)
[2022-12-27] MEDS ORDERED: DIVALPROEX ER 250 MG TAB.ER.24H PO SCH (21:00)
[2022-12-27] MEDS: haloperidoL 5 MG TAB PO PRN (22:44)
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
[2022-12-28] MEDS: LORazepam 1 MG TAB PO PRN ×2 (01:48→22:47)
[2022-12-28] MEDS: NICOTINE 14MG/24HR PATCH TRANSDERM SCH (08:38)
[2022-12-28] MEDS: LITHIUM CARBONATE ER 450 MG TABLET.ER PO SCH ×2 (08:38→20:04)
[2022-12-28] MEDS: QUEtiapine 100 MG TAB PO SCH ×2 (11:02→20:04)
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
[2022-12-28 12:13] LABS: Lithium 0.7 mmol/L
[2022-12-28] MEDS: clonazePAM 1 MG TAB PO SCH (20:04)
[2022-12-28] MEDS: FAMOTIDINE 20 MG TAB PO SCH (20:04)
[2022-12-28] MEDS ORDERED: DIVALPROEX ER 500 MG TAB.ER.24H PO SCH (21:00)
[2022-12-28] MEDS: haloperidoL 5 MG TAB PO PRN (22:48)
[2022-12-28 23:39] LABS: Chol/HDL Ratio 3.79 Ratio; LDL Cholesterol,Calculated 62.1 mg/dL (0.0-131.0)
[2022-12-29] MEDS: QUEtiapine 100 MG TAB PO SCH ×3 (07:53→19:19)
[2022-12-29] MEDS: LORazepam 1 MG TAB PO PRN ×3 (07:53→19:19)
[2022-12-29] MEDS: LITHIUM CARBONATE ER 450 MG TABLET.ER PO SCH ×2 (07:53→19:21)
[2022-12-29] MEDS: NICOTINE 14MG/24HR PATCH TRANSDERM SCH (07:56)
--- NOTE | 2022-12-29 12:13 | P.PN ---
Progress Note - Text Interval history: Patient was seen and was directable and agreeable to speak with junior copywriter. States that he is doing "good" and that he slept well. At this time patient denies any suicidal or homicidal ideations intent or plan. Denies any Auditory or visual hallucinations. Patient denies any side effects from the medications and has been compliant with meds. Mental status exam: General Appearance: Lying in bed, dressed in hospital robe Behavior: [No agitated behavior. Patient is calm and directable] Speech: Patient's speech is fluent and nonpressured. Mood/Affect: Mood is "good", affect is constricted. Suicidality/Homicidality: Patient denies having any suicidal or homicidal ideation intent or plan. Perceptions: Patient denies any auditory or visual hallucinations. Though content/process: [There is no evidence of any delusional thought content and thought process is linear and goal-directed.] Memory and concentration: AOX3, grossly intact for the purposes of this session Judgment and insight: improving mildly Assessment/Plan: Continue with current diagnosis. Patient continues to meet criteria for inpatient psychiatric admission for symptom stabilization and safety.[Patient will be maintained on current psychotropic medication regimen.] Monitor for medication compliance and for any psychotropic medication side effects. Will continue to monitor ongoing response to treatment. Encouraged participation in milieu.
[2022-12-29] MEDS: FAMOTIDINE 20 MG TAB PO SCH (19:18)
[2022-12-29] MEDS: clonazePAM 1 MG TAB PO SCH (19:20)
[2022-12-29] MEDS: DIVALPROEX ER 500 MG TAB.ER.24H PO SCH (19:27)
[2022-12-30] MEDS: QUEtiapine 100 MG TAB PO SCH (09:53)
[2022-12-30] MEDS: NICOTINE 14MG/24HR PATCH TRANSDERM SCH (09:53)
[2022-12-30] MEDS: LITHIUM CARBONATE ER 450 MG TABLET.ER PO SCH ×2 (09:53→19:56)
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
[2022-12-30] MEDS: DIVALPROEX ER 500 MG TAB.ER.24H PO SCH (19:56)
[2022-12-30] MEDS: QUEtiapine 200 MG TAB PO SCH (19:56)
[2022-12-30] MEDS: clonazePAM 1 MG TAB PO SCH (19:56)
[2022-12-30] MEDS: FAMOTIDINE 20 MG TAB PO SCH (19:56)
[2022-12-31] MEDS: LORazepam 1 MG TAB PO PRN (02:03)
[2022-12-31 02:09] VITALS: PULSE 106
[2022-12-31] MEDS: NICOTINE 14MG/24HR PATCH TRANSDERM SCH (08:35)
[2022-12-31] MEDS: LITHIUM CARBONATE ER 450 MG TABLET.ER PO SCH ×2 (08:35→20:18)
--- NOTE | 2022-12-31 11:23 | P.PN ---
Progress Note - Text Progress Note Date: 12/31/22 Interval History: Patient was seen resting in bed and was directable and agreeable to speak with song writer in his room. Currently, the patient is not reporting any suicidal or homicidal ideation, intention, and/or plan. He is not reporting any auditory or visual hallucinations. The patient was looking for to being discharged today. However, his mother is his guardian and apparently she will be out of town until tomorrow. The patient becomes quite angry and vehemently states that he has no guardian and that his mother has been constantly acting against him. 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 He otherwise has been in adherent with his medications and has been cooperative and polite with staff. He has been directable. He has been sleeping well. Mental Status Exam: General Appearance: Patient appears to be stated age, is alert, with fair hygiene and grooming. Behavior: Patient is initially calmly seated however becomes upset when informed that he would not be discharged as his mother who is his guardian is currently not ready to receive him at the home. Speech: Patient's speech is spontaneous, hyperverbal, pressured. Mood/Affect: Mood is "I need to be discharged today," affect is irritable and demanding Suicidality/Homicidality: Patient does not report any suicidal or homicidal ideation, intention, and/or plan. Perceptions: Patient denies any visual hallucinations and denies any auditory hallucinations Though content/process: Paranoia towards mother stealing money. Grandiose delusions endorse. Memory and concentration: AOX3, grossly intact for the purposes of this session Judgment and insight: Poor Vital Signs Temp 98.6 F 12/30/22 23:00 Pulse 106 H 12/30/22 23:00 Resp 19 12/30/22 23:00 BP 122/75 12/30/22 23:00 Pulse Ox 98 12/30/22 23:00 FiO2 Assessment Schizoaffective disorder, bipolar type Plan: -Patient continues to meet criteria for inpatient psychiatric admission for symptom stabilization and safety. Patient has signed adult voluntary form and medication consent and was placed in patient's chart. -Medications: Continue Seroquel 400 mg by mouth at bedtime Continue Depakote 1500 mg by mouth at bedtime for mood stabilization. Depakote level ordered. Continue Klonopin to 1 mg by mouth at bedtime for anxiety/insomnia Continue lithium 450 mg by mouth twice a day for stabilization -When necessary Ativan and Haldol for agitation/aggression. -NRT - nicotine patch -SW on board for discharge planning. Encouraged the patient to participate in milieu.
[2022-12-31 11:54] LABS: ALT 29 U/L (4-49); AST 26 U/L (17-59); African American GFR (CKD) >90 (>60 ml/min/1.73 sqM); Albumin 3.8 g/dL (3.5-5.0); Alkaline Phosphatase 71 U/L (38-126); Anion Gap 6 mmol/L; Blood Urea Nitrogen 9 mg/dL (9-20); Calcium 9.3 mg/dL (8.4-10.2); Carbon Dioxide 28 mmol/L (22-30); Chloride 103 mmol/L (98-107); Glucose 92 mg/dL (74-99); Non-African American GFR(CKD) >90 (>60 ml/min/1.73 sqM); Potassium 4.2 mmol/L (3.5-5.1); Sodium 137 mmol/L (137-145); Total Bilirubin 0.2 mg/dL (0.2-1.3); Total Protein 6.7 g/dL (6.3-8.2)
[2022-12-31 11:59] LABS: Valproic Acid (Depakene) 98.5 ug/mL
[2022-12-31] MEDS: FAMOTIDINE 20 MG TAB PO SCH (20:18)
[2022-12-31] MEDS: QUEtiapine 200 MG TAB PO SCH (20:18)
[2022-12-31] MEDS: clonazePAM 1 MG TAB PO SCH (20:18)
[2022-12-31] MEDS: DIVALPROEX ER 500 MG TAB.ER.24H PO SCH (20:18)
[2023-01-01] MEDS: LORazepam 1 MG TAB PO PRN (05:46)
[2023-01-01 07:12] VITALS: BP 116/69; RESP 15; TEMP 98.1
[2023-01-01] MEDS: NICOTINE 14MG/24HR PATCH TRANSDERM SCH (09:30)
[2023-01-01] MEDS: LITHIUM CARBONATE ER 450 MG TABLET.ER PO SCH (09:30)
--- NOTE | 2023-01-01 11:39 | P.DS ---
Providers Date of admission: 12/27/22 16:04 Expected date of discharge: 01/01/23 Attending physician: Cole Bedolla MD Consults: 12/27/22 16:09 Consult Physician Routine Consulting Provider: Tony Bailon Consult Reason/Comments: H & P w/medical management and meds Do you want consulting provider notified?: Yes Primary care physician: Stated None - Discharge Diagnosis(es) (1) Schizoaffective disorder, bipolar type Current Visit: Yes Status: Acute Priority: High Hospital Course: Admission HPI: Initial psychiatric evaluation was completed by Dr. Arceo on 12/28/2022 who wrote: Patient is a 42-year-old -[place] male on disability who lives with his mom and her is admitted for bizarre behavior HPI: per chart, patient has had bizarre behavior. Patient states that "my mom just want my money" he says that his mom only gave him less than half of his paycheck and when patient got upset about it, she sent him to the hospital. He implies that mom frequently sends him to the [facility] so she can steal money from him. 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 He also states that the cartoon is taking money from him. He states that he has many ideas, intent build Tyler tries to steal his ideas. Denies any suicidal thoughts, homicidal thoughts, or hallucinations. smokes half a pack per day, and denies any other substance use recently. PAST PSYCHIATRIC HISTORY: history of bipolar disorder with psychotic features. Was admitted in April for psychosis and jordan. At that time, he was discharged on Invega Sustenna, Depakote 1500 at bedtime, and lithium 450 twice a day. he reports multiple hospitalizations. States that he follows up at [facility]. States that his current medications are Seroquel, Depakote, Cogentin, and Ambien. Per chart, he is on seroquel 300 mg qhs, depakote 1500 mg qhs, klonopin 2 mg qhs, and lithium 450 mg bid. States that he is on the Haldol shot. States that he has been on Wellbutrin and Benadryl in the past Patient denies any history of suicide attempts in the past. Hospital course: Upon admission to the unit patient was initially presenting with paranoid and grandiose delusions. Patient was however directable and agreeable to commence treatment. Patient got along well with other patients on the unit and followed unit protocol. Patient was compliant with the medications and denied any side effects throughout hospital course. Patient was agreeable to signing himself formal voluntary on to the psychiatric unit. Patient was started on Seroquel, Depakote, Klonopin, and lithium for mood stabilization.. Patient spoke of his stressors and engaged in therapy both group and individual. Patient was also seen by medical team for history and physical exam. Over the course of hospitalization, the patient displayed significant improvement in regards to start his symptoms of jordan. However, it was determined that the patient was too somnolent in the morning and therefore his morning dose his medication was decreased and his nightly dose was increased. The patient displayed significant improvement with this medication change is much more alert and oriented however his manic symptoms continue to be controlled. The patient was initially to be discharged on 12/31/2022 howeverdischarge plan was available as the patient's guardian was out of town. The patient became quite upset and not being discharged and began ranting in a grandiose and labile fashion. 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 Eventually, he was able to calm down. On the day of discharge, the patient is not reporting any suicidal or homicidal ideation or plan. He reports no access to firearms or weapons. He is alert and oriented in all spheres and reports no issues regarding his sleep or his appetite. He does not mention any overt grandiose or paranoid delusions to this provider. He reports no racing thoughts, mood lability, or increased goal-directed activity. He denies any auditory or visual hallucinations. He remains calm and cooperative. The patient does not have significant history of substance abuse however was couns eled at great length from [employer] including alcohol, tobacco, marijuana, and all illicit drugs. He has been in adherent throughout his hospital stay and is not reporting any medical issues or concerns. He denies any chest pain, Osman's breath, palpitations, akathisia, or tardive dyskinesia. As the patient no longer met criteria for continued inpatient psychiatric hospitalization, he was subsequently discharged after appropriate safety planning. Mental status exam: General Appearance: Patient appears to be stated age is alert, pleasant, and cooperative. Patient is in no acute distress and has fair hygiene and grooming Behavior: Patient is calmly seated without any agitated behavior. Speech: Patient's speech is fluent and nonpressured. Mood/Affect: Patient reports their mood is "feeling good", affect is congruent and euthymic. Suicidality/Homicidality: Patient denies having any suicidal or homicidal ideation intent or plan. Perceptions: Patient denies any auditory or visual hallucinations. Though content/process: There is no evidence of any delusional thought content and thought process is linear and goal-directed. Patient is future oriented. Memory and concentration: AOX3, grossly intact for the purposes of this session. Can spell "WORLD" backwards correctly. Judgment and insight: Improved with guarded prognosis Impression: Schizoaffective disorder, bipolar type Plan: -Continue with discharge today as patient has improved and stabilized psychiatrically and is not currently an imminent threat to himself and/or others. Patient will remain at chronically elevated risk for harm to self and/or others due to the severity and chronicity of his mental illness. -Continue medications: Depakote ER 1500 mg by mouth at bedtime for mood stabilization Klonopin 1 mg by mouth at bedtime for insomnia Natalia 450 mg here twice a day for mood stabilization Seroquel 400 mg by mouth at bedtime for mood stabilization/psychosis -Patient was counseled on the need for medication compliance and appropriate follow-up at mental health and also primary care for medical issues. Patient verbalized understanding and agreed. -Social work to arrange for and conduct family meeting to ensure safety upon discharge and answer any questions/concerns. Social work also to arrange for patients follow up appointments with [facility] for psychiatric care along with follow up with primary care provider. -Patient counseled on abstaining from recreational drugs and marijuana and alcohol. Was informed/educated on the adverse effects on their physical and mental health. Patient verbally agreed and understood. -Patient was instructed to return to the hospital or seek immediate medical care if their psychiatric or medical symptoms do worsen or reoccur. -Psychoeducation and supportive therapy provided to patient. Risks and benefits of pharmacological treatment versus the risks and benefits of nontreatment weighed and discussed. Informed consent discussion held. Common side effects of psychotropics discussed such as, but not limited to headache, GI disturbance, sexual dysfunction, movement disorders, sedation, and orthostatic hypotension. Life threatening and blackbox warnings of prescribed medications also discussed. Potential risks of operating a vehicle or heavy machinery discussed with patient at length. Advised on importance of compliance and a reliable and responsible manner. Patient advised to review FDA consumer labeling of all medications prior to taking. Patient verbalized understanding of potential risks, and agrees with current treatment plan. Patient advised to medically contact physician/emergency personnel if any acute changes in condition occur. Vital Signs Temp 98.1 F 01/01/23 05:48 Pulse 106 H 01/01/23 05:48 Resp 15 01/01/23 05:48 BP 116/69 01/01/23 05:48 Pulse Ox 98 01/01/23 05:48 FiO2 Laboratory Results Sodium 137 mmol/L (137-145) 12/31/22 10:55 Potassium 4.2 mmol/L (3.5-5.1) 12/31/22 10:55 Chloride 103 mmol/L (98-107) 12/31/22 10:55 Carbon Dioxide 28 mmol/L (22-30) 12/31/22 10:55 Anion Gap 6 mmol/L 12/31/22 10:55 BUN 9 mg/dL (9-20) 12/31/22 10:55 Creatinine 0.75 mg/dL (0.66-1.25) 12/31/22 10:55 Est GFR (CKD-EPI)AfAm >90 (>60 ml/min/1.73 sqM) 12/31/22 10:55 Est GFR (CKD-EPI)NonAf >90 (>60 ml/min/1.73 sqM) 12/31/22 10:55 Glucose 92 mg/dL (74-99) 12/31/22 10:[address] Glu mg/dL 123 mg/dL 12/28/22 10:42 Hemoglobin A1c 5.9 % (<=6.0) 12/28/22 10:42 Calcium 9.3 mg/dL (8.4-10.2) 12/31/22 10:55 Total Bilirubin 0.2 mg/dL (0.2-1.3) 12/31/22 10:55 AST 26 U/L (17-59) 12/31/22 10:55 ALT 29 U/L (4-49) 12/31/22 10:55 Alkaline Phosphatase 71 U/L (38-126) 12/31/22 10:55 Total Protein 6.7 g/dL (6.3-8.2) 12/31/22 10:55 Albumin 3.8 g/dL (3.5-5.0) 12/31/22 10:55 Triglycerides 223.00 mg/dL (0.00-149.00) H 12/28/22 10:42 Cholesterol 145.00 mg/dL (0.00-200.00) 12/28/22 10:42 LDL Cholesterol, Calc 62.1 mg/dL (0.0-131.0) 12/28/22 10:42 VLDL Cholesterol, Calc 44.60 mg/dL (5.00-40.00) H 12/28/22 10:42 HDL Cholesterol 38.30 mg/dL (40.00-60.00) L 12/28/22 10:42 Cholesterol/HDL Ratio 3.79 Ratio 12/28/22 10:42 TSH 3.250 mIU/L (0.465-4.680) 12/28/22 10:42 Valproic Acid 98.5 ug/mL 12/31/22 10:55 Natalia 0.7 mmol/L 12/28/22 10:42 Allergies Allergy/AdvReac Type Severity Reaction Status Date / Time No Known Allergies Allergy Verified 12/27/22 16:09 Patient Condition at Discharge: Stable Plan - Discharge Summary Discharge Rx Participant: Yes New Discharge Prescriptions: New Divalproex ER [Depakote ER] 1,500 mg PO HS 30 Days #90 tab clonazePAM [KlonoPIN] 1 mg PO HS 30 Days #30 tab Natalia Carbonate ER [Lithobid] 450 mg PO BID 30 Days #60 tab QUEtiapine [SEROquel] 400 mg PO HS 30 Days #60 tab Discontinued Nicotine 14Mg/24Hr Patch [Habitrol] 1 patch TRANSDERM DAILY 30 Days patch Paliperidone IM [Invega Sustenna] 156 mg IM ONCE #1 ml Divalproex ER [Depakote ER] 1,500 mg PO HS 30 Days tab Natalia Carbonate ER [Lithobid] 450 mg PO BID 30 Days tab QUEtiapine [SEROquel] 100 mg PO HS 7 Days #7 tablet Discharge Medication List Divalproex ER [Depakote ER] 1,500 mg PO HS 30 Days #90 tab 12/31/22 [Rx] Natalia Carbonate ER [Lithobid] 450 mg PO BID 30 Days #60 tab 12/31/22 [Rx] QUEtiapine [SEROquel] 400 mg PO HS 30 Days #60 tab 12/31/22 [Rx] clonazePAM [KlonoPIN] 1 mg PO HS 30 Days #30 tab 12/31/22 [Rx] Follow up Appointment(s)/Referral(s): Family, Medicine [Other] - 1 Week Karin Carrillo [Other] - 01/02/23 9:00 am Patient Instructions/Handouts: Bipolar Disorder (DC) Activity/Diet/Wound Care/Special Instructions: Avoid the use of street drugs and alcohol. Take all medications as prescribed. When you are in need of refills on your medications, please contact your medical provider and/or outpatient psychiatrist to have this done. Please go to scheduled outpatient appointments for aftercare treatment. If symptoms return or become worse, call the crisis line at and/or go to the nearest emergency room for evaluation. Discharge Disposition: HOME SELF-CARE
== END 2023-01-01 15:40 | disposition home or self-care (01) | DRG 750 ==
LOC: 3MHU 16:04
PROVIDERS: ADMIT Psychiatry & Neurology Psychiatry; ATTEND Psychiatry & Neurology Psychiatry
DX: F25.0 Schizoaffective disorder, bipolar type (principal); F12.10 Cannabis abuse, uncomplicated; Z28.310 Unvaccinated for COVID-19; G47.00 Insomnia, unspecified; G89.29 Other chronic pain; M54.50 Low back pain, unspecified; F17.210 Nicotine dependence, cigarettes, uncomplicated; Z71.6 Tobacco abuse counseling; Z79.899 Other long term (current) drug therapy; Z71.51 Drug abuse counseling and surveillance of drug abuser; Z71.41 Alcohol abuse counseling and surveillance of alcoholic
CPT/HCPCS: 80053; 80061; 80164; 80178; 83036; 84443